=== PATIENT | female | born 1950 | race Caucasian/White ===

== ENCOUNTER → 2017-05-01 | Outpatient (CLI) | payer MEDICARE ==
--- NOTE | 2017-05-01 09:27 | RAD ---
DATE: 05/01/2017 EXAM: MAMMO ARASELI SCREENING BILATERAL HISTORY: Screening. Positive family history for breast malignancy COMPARISON: 04/15/2016 This study was interpreted with the benefit of Computerized Aided Detection (CAD). FINDINGS: Breast Density: FATTY The Breast Parenchyma is primarily fatty replaced. Breast parenchyma level density A.. There has not been a significant change in the appearance of the breasts compared to the previous exam IMPRESSION: Benign finding BI-RADS CATEGORY: 2 BENIGN FINDING(S) RECOMMENDED FOLLOW-UP: 12M 12 MONTH FOLLOW-UP PQRS compliance statement: Patient information was entered into a reminder system with a target due date 05/01/2018 for the next mammogram. Mammography is a sensitive method for finding small breast cancers, but it does not detect them all and is not a substitute for careful clinical examination. A negative mammogram does not negate a clinically suspicious finding and should not result in delay in biopsying a clinically suspicious abnormality. "Our facility is accredited by the [employer] Mammography Program."
== END | disposition home or self-care (01) ==
LOC: MAMMO 07:30
PROVIDERS: ATTEND Family Medicine
DX: Z12.31 Encounter for screening mammogram for malignant neoplasm of breast (principal); Z80.3 Family history of malignant neoplasm of breast
CPT/HCPCS: 77063; G0202; 77067

== ENCOUNTER → 2017-08-07 | Outpatient (CLI) | payer MEDICARE ==
--- NOTE | 2017-08-07 11:45 | RAD ---
INDICATION: Right leg edema COMPARISON: None. TECHNIQUE: Grayscale, color and spectral doppler ultrasound images were obtained of the right lower extremity venous vasculature. RIGHT: No thrombus identified in the common femoral vein, femoral vein, popliteal vein or visualized calf veins. Enlarged lymph node right groin measuring up to 52 x 10 mm. IMPRESSION: 1. No thrombus identified in deep venous system of right lower extremity. 2. Mildly enlarged lymph node in the right groin. Could be reactive in nature but if the patient has history or risk factors for neoplasm a follow-up ultrasound could be obtained to ensure no growth.
--- NOTE | 2017-08-07 11:54 | RAD ---
INDICATION: SWELLING, RECENT HX OF ACHILLES TENDONITIS COMPARISON: None. IMPRESSION: Right ankle: 2 views obtained without definite acute fracture or dislocation. Calcific atherosclerosis is identified. Soft tissue swelling is seen. Degenerative changes are seen at the ankle as well as the visualized portions of the foot.
== END | disposition home or self-care (01) ==
LOC: US 10:53
PROVIDERS: ATTEND Physician Assistant
DX: M19.071 Primary osteoarthritis, right ankle and foot (principal); R60.0 Localized edema; R59.9 Enlarged lymph nodes, unspecified; Z87.898 Personal history of other specified conditions
CPT/HCPCS: 73600; 93971

== ENCOUNTER → 2018-05-10 | Outpatient (CLI) | payer MEDICARE ==
--- NOTE | 2018-05-10 12:51 | RAD ---
Bone densitometry scan, 05/10/2018: HISTORY: Postmenopausal screening, kidney failure The lumbar spine and right hip were examined utilizing a DEXA technique. The bone mineral density in the lumbar spine as measured from the L1-L4 levels is 1.62 g/sq cm. This yields a T score of 3.7 which is in the normal range. The total T score at the right hip is -1.2 suggesting osteopenia. On the previous study of 05/11/2016 the right hip T score was -1.3. IMPRESSION: Osteopenia at the right hip, similar to that seen on 05/11/2016. Electronically signed by: James Rico MD (05/10/2018 12:47 PM) [facility]
--- NOTE | 2018-05-11 08:22 | RAD ---
DATE: 05/10/2018 EXAM: MAMMO ARASELI SCREENING BILATERAL HISTORY: Routine screening COMPARISON: 05/01/2017 This study was interpreted with the benefit of Computerized Aided Detection (CAD). The breast parenchyma is primarily fatty replaced. Breast parenchyma level density A. FINDINGS: 2-D and 3-D tomosynthesis imaging was performed in CC and MLO projections. No new or enlarging breast densities are seen. There are scattered benign type calcifications. No suspicious microcalcifications have developed. IMPRESSION: Stable mammograms without evidence of malignancy. BI-RADS CATEGORY: 2 BENIGN FINDING(S) RECOMMENDED FOLLOW-UP: 12M 12 MONTH FOLLOW-UP PQRS compliance statement: Patient information was entered into a reminder system with a target due date for the next mammogram. Mammography is a sensitive method for finding small breast cancers, but it does not detect them all and is not a substitute for careful clinical examination. A negative mammogram does not negate a clinically suspicious finding and should not result in delay in biopsying a clinically suspicious abnormality. "Our facility is accredited by the [employer] Mammography Program."
== END | disposition home or self-care (01) ==
LOC: DXRAD 09:44
PROVIDERS: ATTEND Family Medicine
DX: Z13.820 Encounter for screening for osteoporosis (principal); M85.88 Other specified disorders of bone density and structure, other site; N19 Unspecified kidney failure; Z78.0 Asymptomatic menopausal state; Z80.3 Family history of malignant neoplasm of breast
CPT/HCPCS: 77063; 77067; 77080

== ENCOUNTER → 2019-05-13 | Outpatient (CLI) | payer MEDICARE ==
--- NOTE | 2019-05-14 11:15 | RAD ---
DATE: May 13, 2019 EXAM: MAMMO ARASELI SCREENING BILATERAL HISTORY: Screening study. COMPARISON: 2016 and 2018 This study was interpreted with the benefit of Computerized Aided Detection (CAD). 2-D digital mammographic views of both breasts were performed in the CC and MLO projections. 3-D digital tomosynthesis images of both breasts were performed in the CC and MLO projections and reviewed on a computer workstation. FINDINGS: Breast Density: FATTY The breast parenchyma is primarily fatty replaced. Breast parenchyma level density A.. There are no dominant suspicious masses, suspicious microcalcifications or evidence of architectural distortion. IMPRESSION: No mammographic indicators for malignancy. BI-RADS CATEGORY: 1 NEGATIVE RECOMMENDED FOLLOW-UP: 12M 12 MONTH FOLLOW-UP PQRS compliance statement: Patient information was entered into a reminder system with a target due date May 14, 2020 for the next mammogram. Mammography is a sensitive method for finding small breast cancers, but it does not detect them all and is not a substitute for careful clinical examination. A negative mammogram does not negate a clinically suspicious finding and should not result in delay in biopsying a clinically suspicious abnormality. "Our facility is accredited by the [employer] Mammography Program." The patient's breast density may affect the ability of mammography to detect breast cancer. There are 4 categories of breast density, A, B, C and D. Breast density A means that most of the breast tissue is replaced with adipose tissue and therefore is not dense. Breast density B means that the breast tissue is mildly dense and scattered. Breast density C means that the breast tissue is heterogeneously dense. Breast density D means that the breast tissue is very dense. Breast densities especially C and D may decrease the sensitivity of mammography to detect breast cancer. Therefore, the patient may benefit from 3-D breast mammography (3D breast tomography) as a part of their screening mammogram. Insurance may or may not pay for this additional imaging. The patient's breast density based on today's mammogram is category A.
== END | disposition home or self-care (01) ==
LOC: MAMMO 07:52
PROVIDERS: ATTEND Family Medicine
DX: Z12.31 Encounter for screening mammogram for malignant neoplasm of breast (principal)
CPT/HCPCS: 77063; 77067

== ENCOUNTER → 2020-07-27 | Outpatient (CLI) | payer MEDICARE ==
--- NOTE | 2020-07-27 12:07 | RAD ---
DATE: 07/27/2020 9:29 AM EXAM: MAMMO ARASELI SCREENING BILATERAL HISTORY: Screening COMPARISON: 05/13/2019, 05/10/2018 Bilateral CC and MLO views of the breasts were performed. Bilateral breast tomosynthesis was performed in CC and MLO projections. This study was interpreted with the benefit of Computerized Aided Detection (CAD). FINDINGS: Breast Density: FATTY The Breast Parenchyma is primarily fatty replaced. Breast parenchyma level density A. No suspicious masses, microcalcifications or architectural distortion is present to suggest malignancy in either breast. The visualized axillae are unremarkable. IMPRESSION: No mammographic evidence of malignancy. BI-RADS CATEGORY: 1 NEGATIVE RECOMMENDED FOLLOW-UP: 12M 12 MONTH FOLLOW-UP Annual screening mammography is recommended, unless clinically indicated sooner based on symptoms or change in physical exam. PQRS compliance statement: Patient information was entered into a reminder system with a target due date for the next mammogram. Mammography is a sensitive method for finding small breast cancers, but it does not detect them all and is not a substitute for careful clinical examination. A negative mammogram does not negate a clinically suspicious finding and should not result in delay in biopsying a clinically suspicious abnormality. "Our facility is accredited by the [employer] Mammography Program."
== END ==
LOC: MAMMO 09:22
PROVIDERS: ATTEND Family Medicine
DX: Z12.31 Encounter for screening mammogram for malignant neoplasm of breast (principal)
CPT/HCPCS: 77063; 77067

== ENCOUNTER 2020-09-30 04:13 | Emergency (ER) | payer MEDICARE ==
[~2020-09-30] VITALS: Ht 157.5 cm; Wt 76.0 kg
--- NOTE | 2020-09-30 04:18 | PHYS DOC ---
Past History Past Medical History: Diabetes, Renal Failure, UTI Past Medical History Renal failure renal [facility] HPI: HPI: ".. I been sick the last few days.. nausea.. just don't feel right.. I feel dehydrated... I am a renal transplant patient because of my diabetes... I got renal transplant 12 years ago at . Patient is a 70 year old female who presents with above hx. and complaints generalized malaise, arthralgia, myalgia, and weakness. Patient is on cyclosporine for her renal transplant. Has been compliant with doses. No recent travel or specific ill contacts. Follows at for her kidney issues and transplant team. For other issues per primary care she follows with Dr. Jimenez. Review of Systems: Review of Systems: Constitutional: Denies fever or chills Eyes: Denies change in visual acuity HENT: Denies nasal congestion or sore throat Respiratory: Denies cough or shortness of breath Cardiovascular: Denies chest pain or edema GI: Complains of nausea,. Denies vomiting, bloody stools or diarrhea : Denies dysuria Musculoskeletal: Generalized myalgia, arthralgia and weakness Integument: Denies rash Neurologic: Denies headache, focal weakness or sensory changes Endocrine: Denies polyuria or polydipsia Lymphatic: Denies swollen glands Psychiatric: Denies depression or anxiety Family History: Family History: Noncontributory to presentation Current Medications: Current Meds: See nursing for home meds Allergies: Allergies: See nursing for allergies Physical Exam: PE: Constitutional: Moderate acute distress, ill appearance. [] HENT: Normocephalic, atraumatic, bilateral external ears normal, oropharynx dry, no oral exudates, nose normal. [] Eyes: PERRLA, EOMI, conjunctiva normal, no discharge. [] Neck: Normal range of motion, no tenderness, supple, no stridor. [] Cardiovascular:Heart rate regular rhythm, no murmur [PMI to the left] Lungs & Thorax: Bilateral breath sounds equal at apex auscultation [] Abdomen: Bowel sounds normal, soft, no tenderness, no masses, no pulsatile masses. Right lower quadrant transplant kidney area is nontender. Obese. Old surgery scars. Skin: Warm, dry, no erythema, no rash. [] Back: No tenderness, no CVA tenderness. [] Extremities: Generalized myalgia and arthralgia tenderness, no cyanosis, no clubbing, ROM intact, no edema. No cording appreciated. Complains of generalized weakness and fatigue Neurologic: Alert and oriented X 3, normal motor function, normal sensory function, no focal deficits noted. [] Psychologic: Affect anxious, judgement normal, mood normal. [] EKG: EKG: My interpretation EKG shows sinus tachycardia no acute T wave elevations in spite of potassium [] Radiology/Procedures: Radiology/Procedures: [][place] [address] IMAGING REPORT Signed PATIENT: CADEN PRETTY ACCOUNT: [id number] : 1950 LOCATION: ER AGE: 70 SEX: F EXAM STATUS: REG ER ORD. PHYSICIAN: LEORA FULTON MD REASON: Dyspnea, weakness PROCEDURE: PORTABLE CHEST 1V INDICATION: Reason: Dyspnea, weakness / Spl. Instructions: / History: COMPARISON: None. FINDINGS: Single view of chest obtained. Mild interstitial opacities bilaterally. Calcific atherosclerosis. Degenerative changes of the spine and shoulders. IMPRESSION: * Mild interstitial opacities bilaterally which could be secondary to mild edema or interstitial infiltrate. Electronically signed by: Reena Alejo MD (09/30/2020 5:20 AM) DESKTOP- [id number] DICTATED AND SIGNED BY: REENA ALEJO MD DATE: 09/30/20 0518 CC: KURT JIMENEZ MD; LEORA FULTON MD ~MTH0 0 Heart Score: HEART Score for Chest Pain: HEART Score for Chest Pain Response (Comments) Value History Highly Suspicious 2 ECG Nonspecific Repolarizatio 1 Age > 65 2 Risk Factors 1 or 2 Risk Factors 1 Troponin < Normal Limit 0 Total 6 Risk Factors: Risk Factors: DM, Current or recent (<one month) smoker, HTN, HLP, family history of CAD, obesity. Risk Scores: Score 0 - 3: 2.5% MACE over next 6 weeks - Discharge Home Score 4 - 6: 20.3% MACE over next 6 weeks - Admit for Clinical Observation Score 7 - 10: 72.7% MACE over next 6 weeks - Early Invasive Strategies Course & Med Decision Making: Course & Med Decision Making Pertinent Labs and Imaging studies reviewed. (See chart for details) Discussed patient's presentation testing with transfer-they have accepted patient's pending availability of bed. Dr. Bustillos accepting physician at shift change Patient's received albuterol, glucose with insulin, gram of Calcium, fluid bolus NS, and 1 amp of bicarb for critical potassium level. Critical care time 60 minutes. Impression: 1. Acute on chronic renal failure 2. History of renal transplant 12 years ago 3. Critical hyperkalemia 6.1 4. Dehydration 5. Anemia hemoglobin 9.1 6. Elevated D-dimer 2.54 7. Elevated CK 6,474-(consider rhabdomyolysis) 8. Possible UTI- Urine pending at shift change 9. Immune suppression( Pt. on immunosuppressive drugs for kidney transplant) Endorsed care patient to at shift change. Currently waiting room at for transfer. [] Dragon Disclaimer: Dragon Disclaimer: This electronic medical record was generated, in whole or in part, using a voice recognition dictation system. Departure Departure: Referrals: KURT JIMENEZ MD (PCP) Isabel Disclaimer This chart was dictated in whole or in part using Voice Recognition software in a busy, high-work load, and often noisy Emergency Department environment. It may contain unintended and wholly unrecognized errors or omissions. LEORA FULTON MD Sep 30, 2020 04:18
[2020-09-30] MEDS ORDERED: IV NORMAL SALINE 1,000ML 1,000 ML IV SCH (05:00)
--- NOTE | 2020-09-30 05:22 | RAD ---
INDICATION: Reason: Dyspnea, weakness / Spl. Instructions: / History: COMPARISON: None. FINDINGS: Single view of chest obtained. Mild interstitial opacities bilaterally. Calcific atherosclerosis. Degenerative changes of the spine and shoulders. IMPRESSION: * Mild interstitial opacities bilaterally which could be secondary to mild edema or interstitial inf iltrate. Electronically signed by: Tyrone Alejo MD (09/30/2020 5:20 AM) [id number]
[2020-09-30 05:57] LABS: BASO % 0 % (0-3); EOS # 0.1 x10^3/uL (0.0-0.7); EOS % 1 % (0-3); HEMATOCRIT 28.8 % (36.0-47.0); HEMOGLOBIN 9.1 g/dL (12.0-15.5); LYMPH # 0.5 x10^3/uL (1.0-4.8); LYMPH % 5 % (24-48); MEAN CORPUSCULAR HEMOGLOBIN 28 pg (25-35); MEAN CORPUSCULAR HGB CONC 32 g/dL (31-37); MEAN CORPUSCULAR VOLUME 90 fL (79-100); MONO # 0.4 x10^3/uL (0.0-1.1); MONO % 4 % (0-9); NEUT # 9.1 x10^3uL (1.8-7.7); NEUT % 90 % (31-73); PLATELET COUNT 313 x10^3/uL (140-400); RED BLOOD COUNT 3.21 x10^6/uL (3.50-5.40); WHITE BLOOD COUNT 10.1 x10^3/uL (4.0-11.0)
[2020-09-30 06:23] LABS: ALBUMIN 2.6 g/dL (3.4-5.0); CALCIUM 8.9 mg/dL (8.5-10.1); CREATININE 3.4 mg/dL (0.6-1.0); DIRECT BILIRUBIN 0.3 mg/dL (0.0-0.2); GFR 13.3; MAGNESIUM 1.3 mg/dL (1.8-2.4); TOTAL BILIRUBIN 0.4 mg/dL (0.2-1.0); TOTAL PROTEIN 5.6 g/dL (6.4-8.2)
[2020-09-30 06:25] LABS: POTASSIUM 6.1 mmol/L (3.5-5.1)
[2020-09-30] MEDS ORDERED: IPRATRPIUM/ALBUTEROL 0.5/2.5MG 3 ML NEBU. NEB ONE (06:45)
[2020-09-30] MEDS ORDERED: CALCIUM CHLORIDE 1,000 MG/10 ML DISP.SYRIN IV ONE (06:45)
[2020-09-30] MEDS ORDERED: INSULIN REGULAR 100 UNIT/ML 3ML VIAL. IV ONE (06:45)
[2020-09-30] MEDS ORDERED: SODIUM BICARB ADULT 8.4% 50 MEQ/50 ML DISP.SYRIN. IV ONE (06:45)
[2020-09-30] MEDS ORDERED: DEXTROSE 25% 10 ML DISP.SYRIN. IV ONE (06:45)
[2020-09-30] MEDS ORDERED: IV NORMAL SALINE 500ML 500 ML IV ONE (07:00)
--- NOTE | 2020-09-30 11:54 | EKG ---
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
[2020-09-30 12:13] LABS: CALCIUM 9.9 mg/dL (8.5-10.1); CREATININE 3.1 mg/dL (0.6-1.0); GFR 14.8; POTASSIUM 4.9 mmol/L (3.5-5.1)
[2020-09-30 12:55] LABS: BACTERIA,URINE MOD /HPF (0-FEW); BILIRUBIN,URINE NEG (NEG); CLARITY,URINE CLOUDY; COLOR,URINE YELLOW; GLUCOSE,URINE NEG (NEG); NITRITE,URINE NEG (NEG); SQUAMOUS EPITHELIAL CELL,UR MOD /LPF; UROBILINOGEN,URINE 0.2 mg/dL (0.2 mg/dL)
[2020-09-30 17:20] VITALS: BP 128/65
== END 2020-09-30 18:00 | disposition short-term general hospital (02) ==
LOC: ER 04:13
DX: N17.9 Acute kidney failure, unspecified (principal); N18.9 Chronic kidney disease, unspecified; E11.22 Type 2 diabetes mellitus with diabetic chronic kidney disease; E87.5 Hyperkalemia; E86.0 Dehydration; D64.9 Anemia, unspecified; R79.1 Abnormal coagulation profile; R79.89 Other specified abnormal findings of blood chemistry; Z87.440 Personal history of urinary (tract) infections; Z94.0 Kidney transplant status
CPT/HCPCS: 36415; 71045; 80048; 80076; 81001; 82550; 82947; 83605; 83690; 83735; 84443; 84484; 85025; 85379; 85610; 87040; 87086; 93005; 96361; 96374; 96375; 99291; J1815; J7030; J7040; J7060

== ENCOUNTER 2020-12-23 06:35 | Emergency (ER) | payer MEDICARE ==
[~2020-12-23] VITALS: Ht 157.5 cm; Wt 76.0 kg
--- NOTE | 2020-12-23 06:55 | PHYS DOC ---
Past History Past Medical History: Diabetes, Renal Failure, UTI Past Surgical History: Other Additional Past Surgical Histo: kidney right transplant Smoking: Non-smoker Alcohol Use: None Drug Use: None [facility] EDM: Chief Complaint: LOWER EXT PAIN HPI: HPI: Lori is a 70 year old female who presents via EMS w/ LLE pain after a mechanical fall at 11 pm last night. She was getting up to use the restroom and tripped on the carpet. Denies LOC. Denies striking her head. Lori is not currently anticoagulated. She was originally going to wait to seek care, but the pain worsened and she states she could not walk. Her pain is over the inner part of her left thigh. She rates it as 7-8/10. The pain is sharp, constant, and non radiating. It is worse with attempted active movement and with passive movement. She did not take anything to make the pain worse due to hx of kidney transplant. Last meal was yesterday evening, with last oral fluid intake at 11pm last night. Denies chest pain. Denies headache or neck pain. Denies fever/chills. Denies known exposure to COVID-19. Reports she received 1st COVID vaccination 4 weeks ago (Moderna) and was scheduled to receive 2nd dosing today. Review of Systems: Review of Systems: Constitutional: Denies fever or chills Eyes: Denies redness or eye pain HENT: Denies nasal congestion or sore throat Respiratory: Denies cough or shortness of breath Cardiovascular: Denies chest pain or palpitations GI: Denies abdominal pain, nausea, or vomiting; reports chronic diarrhea : Denies dysuria or hematuria Musculoskeletal: Denies back pain; reports left inner thigh pain Integument: Denies rash or skin lesions Neurologic: Denies headache, focal weakness or sensory changes Complete systems were reviewed and found to be within normal limits, except as documented in this note. Current Medications: Current Meds: Tacrolimus, Mycophenolate Allergies: Allergies: Allergies Coded Allergies Type Severity Reaction Last Updated Verified No Known Allergies Allergy Unknown 09/30/20 Yes Physical Exam: PE: Constitutional: Well developed, well nourished, no acute distress, non-toxic appearance HENT: Normocephalic, atraumatic Eyes: Conjunctiva normal, no discharge Neck: Normal range of motion, no midline tenderness, supple Lungs & Thorax: No respiratory distress, equal chest rise and fall Abdomen: Soft, no tenderness; pelvis stable and nontender Skin: Warm, dry, no erythema, no rash, 2x 6cm skin tears on left anterior upper extremity above elbow Extremities: Left lower extremity shortened, pain with lateral trochanter palpation on left side, muscle strength 2/5 on left, 5/5 on right. pulses and sensation intact b/l Neurologic: Alert and oriented X 3, normal sensory function, no focal deficits noted Psychologic: Affect normal, judgment normal EKG: EKG: @0815 NSR at 79bpm, NO ST elevation, prominent t waves noted in V3-V4, QRS 82ms, QT/QTc 374/430ms Radiology/Procedures: Radiology/Procedures: PROCEDURE: XR HIP WITH PELVIS LEFT 2 VIEWS, XR KNEE _3 VIEWS_LT CLINICAL INDICATION: Pain status post fall COMPARISON: None TECHNIQUE: AP view the pelvis, AP and crosstable lateral view of the left hip. AP, oblique, and lateral views of the left knee. FINDINGS: Left hip: There is a displaced subcapital left femoral neck fracture with varus alignment. No other fracture of the pelvis. Mild degenerative changes of the hips. There is mild lumbar degenerative disc disease. Vascular calcifications are noted. Left knee: No acute fracture. Alignment is normal. Mild medial and lateral compartment narrowing. No joint effusion. There are vascular calcifications. IMPRESSION: 1. Displaced subcapital left femoral neck fracture with varus alignment. 2. No acute osseous abnormality of the left knee. Electronically signed by: Lizbeth De La Torre MD (12/23/2020 8:03 AM) [id number]] PROCEDURE: CHEST AP ONLY EXAM: XR CHEST 1V 12/23/2020 7:39 AM CLINICAL INDICATION: Pain, fall COMPARISON: Chest radiograph 09/30/2020 TECHNIQUE: AP supine view of the chest FINDINGS: The heart is normal in size. Lungs are well-expanded and clear. No pleural effusion or pneumothorax. No acute osseous abnormality. IMPRESSION: No acute cardiopulmonary abnormality. Electronically signed by: Lizbeth De La Torre MD (12/23/2020 8:03 AM) [id number] Heart Score: C/O Chest Pain: N/A Course & Med Decision Making: Course & Med Decision Making Patient is a 70 y/o female with a hx of renal failure who presents with sharp, 7/10, non radiating inner thigh pain after a mechanical fall last night at 11pm. She comes to the ER this morning via EMS with progressive pain and inability to ambulate. Given the patients age, inability to walk, and physical exam, her hip and knee were imaged. Subsequently a left femoral neck fracture was discovered. Perioperative testing therefore obtained. Chest xray and ECG stable. Labs obtained and recorded in chart. Patient is requesting to have her kidney transplant medications at 9am. Pertinent Labs and Imaging studies reviewed. (See chart for details) Patient requiring transfer to [facility] for admission for further evaluation and treatment. Discussed case with Dr. Castillo (orthopedics) who is in agreement with consultation and plan. Discussed with Dr. Castillo regarding her PO kidney transplant medications at 9:00am and he was in agreement with her maintaining NPO status with exception of these medicines. Discussed with Dr. Gallagher (hospitalist) who is in agreement with admission. Discussed findings and plan with patient and family, who acknowledge understanding and agreement. Dragon Disclaimer: Dragon Disclaimer: This electronic medical record was generated, in whole or in part, using a voice recognition dictation system. Departure Departure: Impression: Primary Impression: Subcapital fracture of left femur Qualified Codes: S72.012A - Unspecified intracapsular fracture of left femur, initial encounter for closed fracture Additional Impressions: Fall Qualified Codes: W19.XXXA - Unspecified fall, initial encounter Hx of kidney transplant Disposition: 02 DC/TRF OTHER SHORT TERM HOS ([facility]- Dr. Gallagher accepting) Admitting Physician: Jose Eduardo Gallagher Condition: STABLE Referrals: KURT TIRADO MD (PCP) DAMIÁN AGUILAR DO Dec 23, 2020 06:55
[2020-12-23] MEDS ORDERED: NEOMY/BACITR/POLYMYXIN OINT PACKET. TP ONE (07:15)
[2020-12-23] MEDS ORDERED: IV NORMAL SALINE 1,000ML 1,000 ML IV ONE (07:45)
--- NOTE | 2020-12-23 08:05 | RAD ---
EXAM: XR BILATERAL HIP (WITH OR WITHOUT PELVIS) LEFT 2 VIEWS, XR KNEE _3 VIEWS_LT 12/23/2020 7:15 AM CLINICAL INDICATION: Pain status post fall COMPARISON: None TECHNIQUE: AP view the pelvis, AP and crosstable lateral view of the left hip. AP, oblique, and late ral views of the left knee. FINDINGS: Left hip: There is a displaced subcapital left femoral neck fracture with varus alignment. No other f racture of the pelvis. Mild degenerative changes of the hips. There is mild lumbar degenerative disc disease. Vascular calcifications are noted. Left knee: No acute fracture. Alignment is normal. Mild medial and lateral compartment narrowing. No joint effusion. There are vascular calcifications. IMPRESSION: 1. Displaced subcapital left femoral neck fracture with varus alignment. 2. No acute osseous abnormality of the left knee. Electronically signed by: Lizbeth De La Torre MD (12/23/2020 8:03 AM) [id number]
--- NOTE | 2020-12-23 08:06 | RAD ---
EXAM: XR CHEST 1V 12/23/2020 7:39 AM CLINICAL INDICATION: Pain, fall COMPARISON: Chest radiograph 09/30/2020 TECHNIQUE: AP supine view of the chest FINDINGS: The heart is normal in size. Lungs are well-expanded and clear. No pleural effusion or pne umothorax. No acute osseous abnormality. IMPRESSION: No acute cardiopulmonary abnormality. Electronically signed by: Lizbeth De La Torre MD (12/23/2020 8:03 AM) [id number]
[2020-12-23 08:22] LABS: BASO % 0 % (0-3); EOS % 0 % (0-3); HEMATOCRIT 36.4 % (36.0-47.0); HEMOGLOBIN 11.8 g/dL (12.0-15.5); LYMPH # 0.6 x10^3/uL (1.0-4.8); LYMPH % 7 % (24-48); MEAN CORPUSCULAR HEMOGLOBIN 29 pg (25-35); MEAN CORPUSCULAR HGB CONC 32 g/dL (31-37); MEAN CORPUSCULAR VOLUME 91 fL (79-100); MONO # 0.3 x10^3/uL (0.0-1.1); MONO % 3 % (0-9); NEUT # 7.2 x10^3uL (1.8-7.7); NEUT % 89 % (31-73); PLATELET COUNT 188 x10^3/uL (140-400); RED BLOOD COUNT 4.01 x10^6/uL (3.50-5.40); RED CELL DISTRIBUTION WIDTH 15.1 % (11.5-14.5); WHITE BLOOD COUNT 8.1 x10^3/uL (4.0-11.0)
[2020-12-23 08:28] LABS: ANION GAP 13 (6-14); BLOOD UREA NITROGEN 41 mg/dL (7-20); BUN/CREATININE RATIO 22 (6-20); CALCIUM 9.7 mg/dL (8.5-10.1); CARBON DIOXIDE 25 mmol/L (21-32); CHLORIDE 103 mmol/L (98-107); CREATININE 1.9 mg/dL (0.6-1.0); GFR 26.1; GLUCOSE 195 mg/dL (70-99); POTASSIUM 4.5 mmol/L (3.5-5.1); SODIUM 141 mmol/L (136-145)
[2020-12-23 08:43] LABS: ALBUMIN 3.6 g/dL (3.4-5.0); ALBUMIN/GLOBULIN RATIO 0.9 (1.0-1.7); ALK PHOS 78 U/L (46-116); ALT (SGPT) 22 U/L (14-59); AST (SGOT) 22 U/L (15-37); MAGNESIUM 2.1 mg/dL (1.8-2.4); TOTAL BILIRUBIN 0.7 mg/dL (0.2-1.0); TOTAL PROTEIN 7.4 g/dL (6.4-8.2)
[2020-12-23 09:22] LABS: BACTERIA,URINE 0 /HPF (0-FEW); BILIRUBIN,URINE NEG (NEG); CLARITY,URINE CLEAR; COLOR,URINE YELLOW; GLUCOSE,URINE NEG (NEG); NITRITE,URINE NEG (NEG); SQUAMOUS EPITHELIAL CELL,UR MANY /LPF; UROBILINOGEN,URINE 0.2 mg/dL (0.2 mg/dL); WBC,URINE OCC /HPF (0-4)
[2020-12-23 09:23] LABS: HYALINE CASTS, URINE OCC /HPF
[2020-12-23 10:05] VITALS: BP 164/79
--- NOTE | 2020-12-23 11:27 | EKG ---
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
== END 2020-12-23 10:15 | disposition short-term general hospital (02) ==
LOC: ER 06:35
DX: S72.012A Unspecified intracapsular fracture of left femur, initial encounter for closed fracture (principal); Z20.822 Contact with and (suspected) exposure to COVID-19; M79.605 Pain in left leg; M25.551 Pain in right hip; E11.9 Type 2 diabetes mellitus without complications; E11.22 Type 2 diabetes mellitus with diabetic chronic kidney disease; Z98.890 Other specified postprocedural states; W18.39XA Other fall on same level, initial encounter; Y93.89 Activity, other specified; Y92.89 Other specified places as the place of occurrence of the external cause; Y99.8 Other external cause status
CPT/HCPCS: 36415; 51702; 71045; 73502; 73562; 80053; 81001; 82553; 83735; 84484; 85025; 85610; 85730; 87426; 93005; 96361; 96374; 96376; 99285; C9803; J3010; J7030; U0003

== ENCOUNTER → 2021-08-05 | Outpatient (CLI) | payer MEDICARE ==
--- NOTE | 2021-08-06 08:02 | RAD ---
Bilateral digital screening 2-D and 3-D (digital breast tomosynthesis) mammogram: Reason for examination: Routine screening. Comparison: Mammograms 07/27/2020, 05/13/2019, and 05/10/2018. Interpretation was made with the benefit of CAD. FINDINGS: Breast density: Category A. Breast tissue is almost entirely fatty. There is a focal asymmetry in the right upper outer quadrant, 10:00 position about 8 cm from the nipp le. This contains a few punctate calcifications. The calcifications may have increased slightly since previous mammogram. The no other evidence of a breast mass or abnormal calcifications are seen. No a rchitectural distortion is identified. IMPRESSION: Calcifications within a focal asymmetry in the right upper outer quadrant which may have increased. F urther evaluation with the diagnostic right mammogram, including 2-D mediolateral and spot magnifica tion compression views in the CC and mediolateral projections, is recommended. Assessment: BI-RADS 0. Incomplete. Additional imaging is recommended. Recommendation: Diagnostic right mammogram. The patient will receive a letter with the results in the mail. Patient information will be entered i nto the mammography reminder system with a target recall date for the next mammogram. A reminder pushpa er will be generated. Electronically signed by: Frances Braswell MD (08/06/2021 8:00 AM) [id number]
== END ==
LOC: MAMMO 07:45
PROVIDERS: ATTEND Family Medicine
DX: Z12.31 Encounter for screening mammogram for malignant neoplasm of breast (principal)
CPT/HCPCS: 77063; 77067

== ENCOUNTER → 2021-08-24 | Outpatient (CLI) | payer MEDICARE ==
--- NOTE | 2021-08-26 10:03 | RAD ---
CLINICAL INDICATION: CADEN PRETTY, who is 71 years of age, presents for further evaluation of foca l asymmetry seen in the right breast. COMPARISON: Prior mammographic imaging dating back to 05/10/2018 TECHNIQUE: Diagnostic views of the right breast were obtained, utilizing digital technique, includin g spot compression and magnification views. BREAST COMPOSITION: There are scattered fibroglandular densities. MAMMOGRAM FINDINGS: The focal asymmetry in the right breast is less conspicuous on spot compression views although still seen. The visualized axilla appears unremarkable. ULTRASOUND FINDINGS: Targeted ultrasound of the mammographic area of concern was performed. Parenchymal tissue of normal echotexture is present. IMPRESSION: 1. Right breast probably benign asymmetry for which follow up is recommended. RECOMMENDATION: In the absence of new clinical symptoms or change in physical exam, short term follow up diagnostic e xamination is recommended in 6 months to assess for interval stability. BIRADS 3: PROBABLY BENIGN Electronically signed by: Mele Torres MD (08/26/2021 10:01 AM) [id number]
== END ==
LOC: MAMMO 13:04
PROVIDERS: ATTEND Specialist
DX: R92.8 Other abnormal and inconclusive findings on diagnostic imaging of breast (principal); R92.2 Inconclusive mammogram
CPT/HCPCS: 76642; 77065

== ENCOUNTER → 2022-02-25 | Outpatient (CLI) | payer MEDICARE ==
--- NOTE | 2022-02-25 14:07 | RAD ---
EXAM: Right breast diagnostic mammogram with tomosynthesis; right breast sonogram. HISTORY: 71-year-old female presents for follow-up evaluation of asymmetry within the right breast de monstrated on a prior study. TECHNIQUE: Full-field digital craniocaudal and mediolateral oblique 2D and 3D tomosynthesis images of the right breast are obtained for evaluation. Computer aided detection was applied. Sonographic imag ing of the right breast targeted to the site of mammographic asymmetry was also performed. COMPARISON: 08/24/2021, 08/05/2021, 07/27/2020, 05/13/2019, 05/10/2018, 05/01/2017, 04/15/2016, 04/14/2015. BREAST PARENCHYMAL DENSITY: Level A - Mostly fat. FINDINGS: There is stable asymmetry within the posterior 9:00 position of the left breast. There is a tiny round microcalcification in this location. These findings are present on a study performed 04/14, favoring an island are benign breast parenchyma. There is no new suspicious mammographic findi ng. Sonographic imaging of the right breast and a straight no suspicious finding. IMPRESSION: 1. Stable asymmetry with benign-appearing microcalcification within the posterior 9:00 position of th e right breast. The long-term stability and absence of a sonographic correlate favors an island of be nign breast parenchyma. 2. BI-RADS Category 3: Probably benign finding(s). Short term follow up with a diagnostic bilateral b reast mammogram in 5 months is recommended to confirm stability and correspond with the previously es tablished bilateral mammography interval. If your mammogram demonstrates that you have dense breast tissue, which could hide abnormalities, and if you have other risk factors for breast cancer that have been identified, you might benefit from s upplemental screening tests that may be suggested by your ordering physician. Dense breast tissue, i n and of itself, is a relatively common condition. This information is not provided to cause undue c oncern, but rather to raise your awareness and to promote discussion with your physician regarding th e presence of other risk factors, in addition to dense breast tissue. A report of your mammography re sults will be sent to you and your physician. You should contact your physician if you have any ques tions or concerns regarding this report. Mammography is a sensitive method for finding small breast cancers, but it does not detect them all a nd is not a substitute for careful clinical examination. A negative mammogram does not negate a clin ically suspicious finding and should not result in delay in biopsying a clinically suspicious abnorma lity. PQRS compliance statement - Patient information was entered into a reminder system with a target due date for the next mammogram. "Our facility is accredited by the [employer] Mammography [employer]." Electronically signed by: Edwina Davis MD (02/25/2022 2:04 PM) [id number]
== END ==
LOC: MAMMO 12:42
PROVIDERS: ATTEND Family Medicine
DX: R92.8 Other abnormal and inconclusive findings on diagnostic imaging of breast (principal); N64.89 Other specified disorders of breast
CPT/HCPCS: 76641; 77065; G0279; 77061